=== PATIENT | female | born 1965 | race Caucasian/White ===

== ENCOUNTER 2020-11-21 11:38 | Outpatient (CLI) | payer MEDICAID, SELFPAY ==
--- NOTE | 2020-11-21 09:44 | DI.RAD_ITS ---
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 TECHNIQUE: 2D digital imaging was performed. COMPARISON: No exams were available for comparison FINDINGS: Heart size is normal. The mediastinum is not widened. There is a left subclavian Port-A-Cath. Its distal tip is in the distal innominate vein at its junct ion with the medial wall of the SVC. There are no pulmonary infiltrates nor pleural effusions. No ominous pulmonary nodules. No pneumoth orax. IMPRESSION: No acute pulmonary findings.Port-A-Cath as described above. DATA REPOSITORY: RADIATION DOSE DELIVERED:
== END 2020-11-21 11:58 ==
PROVIDERS: Visit Provider Internal Medicine Medical Oncology
DX: C20 Malignant neoplasm of rectum (principal); Z95.828 Presence of other vascular implants and grafts
CPT/HCPCS: 71046